=== PATIENT | male | born 1995 | race Two or more races ===

== ENCOUNTER 2019-11-10 18:14 | Emergency (ER) | payer OTHER, SELFPAY ==
[~2019-11-10] VITALS: Ht 172.7 cm; Wt 86.2 kg
[2019-11-10 20:01] VITALS: BP 137/95
== END 2019-11-10 21:22 | disposition home or self-care (01) ==
LOC: ER 18:14
DX: R51 Headache (principal); R42 Dizziness and giddiness; Z20.828 Contact with and (suspected) exposure to other viral communicable diseases
CPT/HCPCS: 36415; 71045; 87426

== ENCOUNTER 2020-11-08 07:49 | Emergency (ER) | payer MEDICAID ==
[~2020-11-08] VITALS: Ht 172.7 cm; Wt 89.4 kg
[2020-11-08] MEDS ORDERED: METOCLOPRAMIDE HCL 5MG/ml INJ 2ml VIAL IV ONE ×2 (08:15)
[2020-11-08] MEDS ORDERED: SODIUM CHLORIDE 0.9% 1,000 ML IV ONE (08:15)
[2020-11-08] MEDS ORDERED: MORPHINE SULFATE INJECTION 2 MG/2 ML SYRG IV ONE ×2 (08:15)
[2020-11-08] MEDS ORDERED: SODIUM CHLORIDE 0.9% 500 ML IVB ONE (08:15)
[2020-11-08 08:25] LABS: Basophils # (auto) 0 10 ^3/uL (0-0.2); Basophils % (auto) 0.8 % (0.0-2.0); Eosinophils # (auto) 0.1 10 ^3/uL (0-0.8); Eosinophils % (auto) 1.8 % (0.0-7.0); Hematocrit 50.5 % (41.0-53.0); Hemoglobin 17.5 g/dL (13.5-17.5); Lymphocytes # (auto) 1.9 10 ^3/uL (0.4-5.4); Lymphocytes % (auto) 32.2 % (10.0-50.0); Mean Corpuscular Hemoglobin 31.4 pg (28.0-32.0); Mean Corpuscular Hgb Conc. 34.6 g/dL (32.0-36.0); Mean Corpuscular Volume 90.8 fL (80.0-100.0); Monocytes # (auto) 0.3 10 ^3/uL (0-1.3); Monocytes % (auto) 4.8 % (0.0-12.0); Neutrophils # (auto) 3.5 10 ^3/uL (1.6-8.6); Neutrophils % (auto) 60.4 % (37.0-80.0); Nucleated Red Blood Cells % 0.1 %; Red Blood Cells 5.56 10^6/uL (4.5-5.90); Red Cell Distribution Width 12.1 % (11.8-14.3); White Blood Cell 5.8 10^3/uL (4.4-10.8)
[2020-11-08] MEDS ORDERED: IOHEXOL 300 MG/ML 100ML BOTTLE IJ ONE (08:26)
[2020-11-08 08:41] LABS: Urine Bacteria FEW /hpf (None Seen); Urine Blood Negative /uL (Negative); Urine Hyaline Cast FEW /lpf (0 - 2); Urine Mucus FEW (None Seen); Urine Specific Gravity 1.032 (1.001-1.035); Urine WBC 4 /hpf (0 - 3)
[2020-11-08 08:46] LABS: Albumin 4.9 g/dL (3.4-5.0); BUN/Creatinine Ratio 11.5; Calcium 9.8 mg/dL (8.5-10.1)
[2020-11-08 08:49] LABS: Bilirubin, Total 2.4 mg/dL (0.2-1.0); Total Protein 8.3 g/dL (6.4-8.2)
[2020-11-08 08:49] LABS: Amphetamine Screen, Urine NEGATIVE (NEGATIVE); Barbiturate Scree,Urine NEGATIVE (NEGATIVE); Benzodiazephine Screen, Urine NEGATIVE (NEGATIVE); Cannabinoid Screen, Urine POSITIVE (NEGATIVE); Opiate Scree,Urine NEGATIVE (NEGATIVE); Phencyclidine Screen, Urine NEGATIVE (NEGATIVE)
[2020-11-08 08:55] LABS: Cocaine Screen, Urine NEGATIVE (NEGATIVE)
[2020-11-08 11:45] VITALS: BP 135/69
== END 2020-11-08 13:30 | disposition home or self-care (01) ==
LOC: ER 07:49
DX: R10.31 Right lower quadrant pain (principal)
CPT/HCPCS: 36415; 74177; 80053; 80307; 81001; 83690; 83735; 85025; 96361; 96374; 96375; 99285; J2270; J2765; J7030; Q9967

== ENCOUNTER 2021-01-27 04:51 | Emergency (ER) | payer MEDICAID ==
[~2021-01-27] VITALS: Ht 175.3 cm; Wt 88.5 kg
[2021-01-27 04:53] VITALS: BP 118/69
[2021-01-27] MEDS ORDERED: PANTOPRAZOLE 40 MG TAB PO ONE (07:00)
[2021-01-27 10:38] LABS: Basophils # (auto) 0 10 ^3/uL (0-0.2); Basophils % (auto) 0.3 % (0.0-2.0); Eosinophils # (auto) 0 10 ^3/uL (0-0.8); Eosinophils % (auto) 0.5 % (0.0-7.0); Hematocrit 48.6 % (41.0-53.0); Hemoglobin 16.8 g/dL (13.5-17.5); Lymphocytes # (auto) 2.2 10 ^3/uL (0.4-5.4); Lymphocytes % (auto) 34.4 % (10.0-50.0); Mean Corpuscular Hemoglobin 31.6 pg (28.0-32.0); Mean Corpuscular Hgb Conc. 34.5 g/dL (32.0-36.0); Mean Corpuscular Volume 91.3 fL (80.0-100.0); Monocytes # (auto) 0.4 10 ^3/uL (0-1.3); Neutrophils # (auto) 3.7 10 ^3/uL (1.6-8.6); Neutrophils % (auto) 58.8 % (37.0-80.0); Nucleated Red Blood Cells % 0.2 %; Red Blood Cells 5.32 10^6/uL (4.5-5.90); Red Cell Distribution Width 12.5 % (11.8-14.3); White Blood Cell 6.4 10^3/uL (4.4-10.8)
[2021-01-27 10:50] LABS: Potassium 3.7 mmol/L (3.5-5.1)
[2021-01-27 11:01] LABS: Albumin 4.4 g/dL (3.4-5.0); BUN/Creatinine Ratio 10.2; Bilirubin, Total 1.9 mg/dL (0.2-1.0); Calcium 9.1 mg/dL (8.5-10.1); Total Protein 8.2 g/dL (6.4-8.2)
[2021-01-28] MEDS ORDERED: METO-517 PO (16:00)
[2021-01-28] MEDS ORDERED: OMEP-263 PO (16:00)
[2021-01-28] MEDS ORDERED: TRAM50TA2 PO (16:01)
[2021-01-29] MEDS ORDERED: OMEP20TA PO (18:30)
== END 2021-01-27 14:05 | disposition home or self-care (01) ==
LOC: ER 04:51
DX: K29.70 Gastritis, unspecified, without bleeding (principal); K21.9 Gastro-esophageal reflux disease without esophagitis
CPT/HCPCS: 36415; 80053; 83690; 84484; 85025

== ENCOUNTER 2021-01-28 07:55 | Inpatient (IN) | payer MEDICAID ==
[~2021-01-28] VITALS: Ht 175.3 cm; Wt 97.9 kg
[2021-01-28] MEDS ORDERED: SODIUM CHLORIDE 0.9% 1,000 ML IV ONE (08:30)
[2021-01-28] MEDS ORDERED: PROCHLORPERAZINE EDISYLATE 5 MG/ML 2ML VIAL IV ONE (08:30)
[2021-01-28] MEDS ORDERED: PANTOPRAZOLE 40 MG/10 ML VIAL INJ IV ONE ×2 (08:30→14:45)
[2021-01-28] MEDS ORDERED: MORPHINE SULFATE 4 MG/ML SYR/VIAL IV ONE (08:30)
[2021-01-28] MEDS ORDERED: NITROGLYCERIN 0.4 MG SL TAB SL PRN ×2 (13:15→15:45)
[2021-01-28] MEDS ORDERED: MORPHINE SULFATE INJECTION 2 MG/ML SYRG IV PRN ×3 (13:15→15:45)
[2021-01-28] MEDS ORDERED: LORazepam 2MG/ML-1ML VIAL IV ONE (14:45)
[2021-01-28] MEDS: HYDROmorphone HCL 2 MG/ML VL IV ONE ×2 (15:15→15:19)
[2021-01-28] MEDS ORDERED: LORazepam 0.5 MG TAB PO PRN (15:45)
[2021-01-28] MEDS ORDERED: cefTRIAXone 1GM/50ML D5W 50 ML IV ONE (15:45)
[2021-01-28] MEDS ORDERED: ALUM & MAG HYDROX-SIMETH LIQ(MAALOX) 30 ML PO PRN (15:45)
[2021-01-28] MEDS ORDERED: HYDROcodone-ACET 5/325MG TAB PO PRN (15:45)
[2021-01-28] MEDS ORDERED: ACETAMINOPHEN 325 MG TAB PO PRN (15:45)
[2021-01-28] MEDS ORDERED: ONDANSETRON HCL 4 MG/2 ML VIAL IV PRN (15:45)
[2021-01-28] MEDS ORDERED: DOCUSATE SOD 100 MG CAP PO PRN (15:45)
[2021-01-28] MEDS ORDERED: OMEP-263 PO (16:00)
[2021-01-28] MEDS ORDERED: METO-517 PO (16:00)
[2021-01-28] MEDS ORDERED: TRAM50TA2 PO (16:01)
[2021-01-28] MEDS: SODIUM CHLORIDE 0.9% 1,000 ML IV SCH (16:16)
[2021-01-28] MEDS ORDERED: SUCRALFATE 1 GM/10 ML ORAL SUSP PO SCH (17:00)
[2021-01-28] MEDS: SUCRALFATE 1 GM/10 ML ORAL SUSP PO SCH ×2 (17:40→22:40)
[2021-01-28 18:26] VITALS: BP 121/69
[2021-01-28 22:00] VITALS: BP 97/70
[2021-01-28] MEDS: PANTOPRAZOLE 40 MG/10 ML VIAL INJ IV SCH (22:40)
[2021-01-29 05:00] VITALS: BP 114/59
[2021-01-29] MEDS: SODIUM CHLORIDE 0.9% 1,000 ML IV SCH (05:05)
[2021-01-29 05:21] LABS: Amphetamine Screen, Urine NEGATIVE (NEGATIVE); Barbiturate Scree,Urine NEGATIVE (NEGATIVE); Benzodiazephine Screen, Urine NEGATIVE (NEGATIVE); Cannabinoid Screen, Urine POSITIVE (NEGATIVE); Cocaine Screen, Urine NEGATIVE (NEGATIVE); Phencyclidine Screen, Urine NEGATIVE (NEGATIVE)
[2021-01-29 05:28] LABS: Alcohol, Urine < 3.0 mg/dL (0-10); Opiate Scree,Urine NEGATIVE (NEGATIVE)
[2021-01-29 05:46] LABS: Basophils # (auto) 0 10 ^3/uL (0-0.2); Basophils % (auto) 0.3 % (0.0-2.0); Eosinophils # (auto) 0 10 ^3/uL (0-0.8); Eosinophils % (auto) 0.9 % (0.0-7.0); Hematocrit 43.6 % (41.0-53.0); Hemoglobin 14.7 g/dL (13.5-17.5); Lymphocytes # (auto) 1.3 10 ^3/uL (0.4-5.4); Lymphocytes % (auto) 24.4 % (10.0-50.0); Mean Corpuscular Hemoglobin 30.6 pg (28.0-32.0); Mean Corpuscular Hgb Conc. 33.7 g/dL (32.0-36.0); Mean Corpuscular Volume 90.8 fL (80.0-100.0); Monocytes # (auto) 0.4 10 ^3/uL (0-1.3); Monocytes % (auto) 6.8 % (0.0-12.0); Neutrophils # (auto) 3.6 10 ^3/uL (1.6-8.6); Neutrophils % (auto) 67.6 % (37.0-80.0); Red Cell Distribution Width 12.6 % (11.8-14.3); White Blood Cell 5.3 10^3/uL (4.4-10.8)
[2021-01-29 06:06] LABS: Potassium 3.8 mmol/L (3.5-5.1)
[2021-01-29 06:15] LABS: Urine Bacteria NONE SEEN /hpf (None Seen); Urine Blood Negative /uL (Negative); Urine Mucus MODERATE (None Seen); Urine Specific Gravity 1.032 (1.001-1.035); Urine WBC 15 /hpf (0 - 3)
[2021-01-29 06:17] LABS: Albumin 3.8 g/dL (3.4-5.0); BUN/Creatinine Ratio 13.6; Bilirubin, Total 2.2 mg/dL (0.2-1.0); Calcium 8.3 mg/dL (8.5-10.1); Magnesium 2.6 mg/dL (1.6-2.6); Phosphorus 2.6 mg/dL (2.5-4.90); Uric Acid 6.4 mg/dL (3.5-7.2)
[2021-01-29 06:23] LABS: INR 1.12 (0.9-1.15)
[2021-01-29] MEDS: SUCRALFATE 1 GM/10 ML ORAL SUSP PO SCH ×3 (06:27→18:14)
[2021-01-29 08:00] VITALS: BP 131/68
[2021-01-29] MEDS ORDERED: cefTRIAXone 1GM/50ML D5W 50 ML IV SCH (09:00)
[2021-01-29] MEDS: PANTOPRAZOLE 40 MG/10 ML VIAL INJ IV SCH (09:41)
[2021-01-29] MEDS ORDERED: LIDOCAINE VISCOUS 2% 15ML UD ONE (10:11)
[2021-01-29] MEDS ORDERED: diphenhdrAMINE HCL 50 MG/1 ML VL ONE (10:11)
[2021-01-29 13:00] VITALS: BP 145/71
[2021-01-29] MEDS: MIDAZOLAM HCL 5 MG/ML-1ML VIAL ONE ×2 (15:51→15:55)
[2021-01-29] MEDS: fentaNYL CITRATE 100 MCG/2 ML VL ONE ×2 (15:51→15:55)
[2021-01-29] MEDS ORDERED: fentaNYL CITRATE 100 MCG/2 ML VL ONE (15:58)
[2021-01-29 17:00] VITALS: BP 126/72
[2021-01-29] MEDS ORDERED: OMEP20TA PO (18:30)
[2021-01-30] MEDS ORDERED: OMEPRAZOLE 20MG/10ML ORAL SUSP PO SCH (10:00)
== END 2021-01-29 20:01 | disposition home or self-care (01) | DRG 241 ==
LOC: ER 07:55 → TELE 13:03 → TELE-WESTW 17:21
PROVIDERS: ADMIT Hospitalist; ATTEND Internal Medicine
PROC: 0DB88ZX Excision of Small Intestine, Via Natural or Artificial Opening Endoscopic, Diagnostic (ICD-10-PCS; 2021-01-29)
PROC: 0DB68ZX Excision of Stomach, Via Natural or Artificial Opening Endoscopic, Diagnostic (ICD-10-PCS; principal; 2021-01-29 15:49)
DX: K29.21 Alcoholic gastritis with bleeding (principal); E66.3 Overweight; E86.0 Dehydration; F10.10 Alcohol abuse, uncomplicated; F12.90 Cannabis use, unspecified, uncomplicated; Z20.822 Contact with and (suspected) exposure to COVID-19; K21.9 Gastro-esophageal reflux disease without esophagitis; Y90.9 Presence of alcohol in blood, level not specified; K44.9 Diaphragmatic hernia without obstruction or gangrene; Z68.31 Body mass index [BMI] 31.0-31.9, adult
CPT/HCPCS: 36415; 43239; 71045; 76705; 80053; 80307; 81001; 83036; 83690; 83735; 83880; 83970; 84100; 84443; 84484; 84550; 85025; 85610; 86850; 86900; 86901; 87040; 87086; 87426; 96361; 96374; 96375; C9113; G0378; J0696; J2250

== ENCOUNTER 2021-01-31 07:14 | Emergency (ER) | payer MEDICAID ==
[~2021-01-31] VITALS: Ht 175.3 cm; Wt 83.5 kg
[~2021-01-31 07:14] MED LIST: METO-517 PO; OMEP-263 PO; OMEP20TA PO; TRAM50TA2 PO
[2021-01-31] MEDS ORDERED: SODIUM CHLORIDE 0.9% 1,000 ML IV ONE (07:45)
[2021-01-31] MEDS ORDERED: ONDANSETRON HCL 4 MG/2 ML VIAL IV ONE (07:45)
[2021-01-31] MEDS: KETOROLAC TROMETH 30 MG/ML 1ML VIAL IV ONE ×2 (08:08→09:10)
[2021-01-31 08:40] LABS: Basophils # (auto) 0 10 ^3/uL (0-0.2); Basophils % (auto) 0.2 % (0.0-2.0); Eosinophils # (auto) 0.1 10 ^3/uL (0-0.8); Eosinophils % (auto) 0.9 % (0.0-7.0); Hematocrit 43.8 % (41.0-53.0); Hemoglobin 15.1 g/dL (13.5-17.5); Lymphocytes # (auto) 1.3 10 ^3/uL (0.4-5.4); Lymphocytes % (auto) 19.7 % (10.0-50.0); Mean Corpuscular Hemoglobin 30.8 pg (28.0-32.0); Mean Corpuscular Hgb Conc. 34.6 g/dL (32.0-36.0); Mean Corpuscular Volume 88.9 fL (80.0-100.0); Monocytes # (auto) 0.4 10 ^3/uL (0-1.3); Monocytes % (auto) 6.2 % (0.0-12.0); Neutrophils # (auto) 4.8 10 ^3/uL (1.6-8.6); Red Blood Cells 4.92 10^6/uL (4.5-5.90); Red Cell Distribution Width 12.3 % (11.8-14.3); White Blood Cell 6.6 10^3/uL (4.4-10.8)
[2021-01-31 08:55] LABS: Calcium 8.7 mg/dL (8.5-10.1); Potassium 4.1 mmol/L (3.5-5.1)
[2021-01-31 09:01] LABS: BUN/Creatinine Ratio 9.4; Bilirubin, Total 1.9 mg/dL (0.2-1.0); Total Protein 7.4 g/dL (6.4-8.2)
[2021-01-31 09:03] LABS: Urine Bacteria NONE SEEN /hpf (None Seen); Urine Blood Negative /uL (Negative); Urine Mucus FEW (None Seen); Urine Specific Gravity 1.017 (1.001-1.035); Urine WBC 1 /hpf (0 - 3)
[2021-01-31] MEDS ORDERED: ALUM & MAG HYDROX-SIMETH LIQ(MAALOX) 30 ML PO ONE (10:30)
[2021-01-31] MEDS ORDERED: FAMOTIDINE 20 MG TAB PO ONE (10:30)
[2021-01-31] MEDS ORDERED: LIDOCAINE VISCOUS 2% 15ML UD PO ONE (10:30)
[2021-01-31 11:51] VITALS: BP 108/56
[2021-01-31] MEDS ORDERED: ONDA-144 PO (13:53)
[2021-01-31] MEDS ORDERED: PANT40TA2 PO (13:53)
[2021-01-31] MEDS ORDERED: PANTOPRAZOLE 40 MG/10 ML VIAL INJ IV ONE (14:00)
== END 2021-01-31 14:55 | disposition home or self-care (01) ==
LOC: ER 07:14
DX: R10.13 Epigastric pain (principal); F12.10 Cannabis abuse, uncomplicated; K21.9 Gastro-esophageal reflux disease without esophagitis
CPT/HCPCS: 36415; 74022; 80053; 81001; 83690; 83735; 85025; 93005; 96361; 96374; 96375; 99285; C9113; J1885; J2405; J7030

== ENCOUNTER 2021-02-06 19:11 | Emergency (ER) | payer MEDICAID ==
[~2021-02-06 19:11] MED LIST changes: +ONDA-144 PO; +PANT40TA2 PO
== END 2021-02-06 19:46 | disposition left against medical advice (07) ==
LOC: ER 19:11
DX: R10.9 Unspecified abdominal pain (principal); Z53.21 Procedure and treatment not carried out due to patient leaving prior to being seen by health care provider

== ENCOUNTER 2021-02-07 09:39 | Emergency (ER) | payer MEDICAID ==
[~2021-02-07] VITALS: Ht 175.3 cm; Wt 83.5 kg
[2021-02-07 09:39] VITALS: BP 117/72
[2021-02-07 10:33] LABS: Basophils # (auto) 0 10 ^3/uL (0-0.2); Basophils % (auto) 0.4 % (0.0-2.0); Eosinophils # (auto) 0.1 10 ^3/uL (0-0.8); Eosinophils % (auto) 1.5 % (0.0-7.0); Hematocrit 48.1 % (41.0-53.0); Hemoglobin 16.8 g/dL (13.5-17.5); Lymphocytes # (auto) 1.2 10 ^3/uL (0.4-5.4); Lymphocytes % (auto) 27.1 % (10.0-50.0); Mean Corpuscular Hemoglobin 31.2 pg (28.0-32.0); Mean Corpuscular Hgb Conc. 34.9 g/dL (32.0-36.0); Mean Corpuscular Volume 89.6 fL (80.0-100.0); Monocytes # (auto) 0.3 10 ^3/uL (0-1.3); Monocytes % (auto) 6.9 % (0.0-12.0); Neutrophils # (auto) 2.9 10 ^3/uL (1.6-8.6); Neutrophils % (auto) 64.1 % (37.0-80.0); Nucleated Red Blood Cells % 0.1 %; Red Blood Cells 5.37 10^6/uL (4.5-5.90); Red Cell Distribution Width 12.7 % (11.8-14.3); White Blood Cell 4.4 10^3/uL (4.4-10.8)
[2021-02-07 10:48] LABS: Albumin 4.4 g/dL (3.4-5.0); Calcium 9.2 mg/dL (8.5-10.1); Potassium 3.8 mmol/L (3.5-5.1)
[2021-02-07 10:50] LABS: BUN/Creatinine Ratio 8.4; Bilirubin, Total 1.6 mg/dL (0.2-1.0)
== END 2021-02-07 13:09 | disposition home or self-care (01) ==
LOC: ER 09:39
DX: K44.9 Diaphragmatic hernia without obstruction or gangrene (principal); K21.9 Gastro-esophageal reflux disease without esophagitis; Z79.899 Other long term (current) drug therapy
CPT/HCPCS: 36415; 71045; 80053; 83690; 85025

== ENCOUNTER → 2021-02-28 | Emergency (ER) | payer MEDICAID ==
[~2021-02-28] VITALS: Ht 175.3 cm; Wt 81.6 kg
[2021-02-28 01:30] VITALS: BP 97/62
== END | disposition left against medical advice (07) ==
LOC: ER 01:12
DX: R10.9 Unspecified abdominal pain (principal); R11.2 Nausea with vomiting, unspecified; Z53.21 Procedure and treatment not carried out due to patient leaving prior to being seen by health care provider

== ENCOUNTER 2021-07-24 06:17 | Emergency (ER) | payer MEDICAID ==
[~2021-07-24] VITALS: Ht 175.3 cm; Wt 88.5 kg
[~2021-07-24 06:17] MED LIST changes: -OMEP20TA PO
[2021-07-24] MEDS ORDERED: methylPREDNISolone SOD SUCC 125 MG/2 ML VL IM ONE (07:30)
[2021-07-24] MEDS ORDERED: EPINEPHrine HCL 1 MG/1 ML AMP SC ONE (07:30)
[2021-07-24] MEDS ORDERED: HYDR50CA PO (07:37)
[2021-07-24] MEDS ORDERED: PRED20TA2 PO (07:37)
[2021-07-24 08:10] VITALS: BP 115/73
== END 2021-07-24 08:18 | disposition home or self-care (01) ==
LOC: ER 06:17
DX: T78.40XA Allergy, unspecified, initial encounter (principal); X58.XXXA Exposure to other specified factors, initial encounter
CPT/HCPCS: 96372; 99284; J0171; J2930